=== PATIENT | male | born 1980 | race Caucasian/White ===

== ENCOUNTER 2023-07-27 09:45 | Emergency (ER) | payer OTHER, SELFPAY ==
[2023-07-27 09:59] VITALS: BP 157/95
--- NOTE | 2023-07-27 11:57 | ED.GENMED ---
History of Present Illness
General
Chief Complaint: Foreign Body Ingestion
Source: patient
Exam Limitations: none
Time Seen by Provider: 07/27/23 11:18
Nursing documentation reviewed up to this point in time: agreed with
Travel History
Have you had any contact with someone who has COVID-19?: No
Do you have any symptoms of coronavirus? Fever > 100 degrees, chills, cough, shortness of breath, sore throat, loss of taste or smell, muscle aches, or headache?: No
History of Present Illness
History of Present Illness:
The patient is a 43-year-old man who reports that he has had recurrent difficulty swallowing and choking episodes. He reports that he was eating a sandwich yesterday at 6 PM and felt something get stuck at the top of his throat. Patient denies any
shortness of breath. He is able to eat and drink, however, when he does so, it makes him feel more uncomfortable. Patient reports he was told to follow-up with ENT but has not yet done so. Patient states it feels as though ' a hair is stuck on
his soft palate'. The patient reports he was at urgent care and referred to come to the ED.
Past History
Past History
ED Past Medical History: HTN and Other (Chronic abdominal pain with no clear cut etiology. Anxiety, panic disorder, PTSD)
ED Past Surgical History: Appendectomy
Social History
Alcohol: Occasional
Personal:
Living: with family
Employment: Other
Family History
Family History: Other
Review of Systems
Review of Systems
Allergies reviewed?: Yes
All Other Systems: ROS reviewed and negative except as documented in HPI and ROS
Constitutional: Reports no symptoms
EENT: Reports other
Respiratory: Reports no symptoms
Cardiac: Reports no symptoms
ABD/GI: Reports no symptoms
: Reports no symptoms
Musculoskeletal: Reports no symptoms
Skin: Reports no symptoms
Neurological: Reports no symptoms
Endocrine: Reports no symptoms
Hematologic/Lymphatic: Reports no symptoms
Psychiatric: Reports no symptoms
Phy Exam
Physical Exam
Physical Exam:
Physical Exam
General: no apparent distress, not acutely ill. Breathing comfortably but slightly anxious
Neck: supple. no meningeal signs. normal posterior pharynx. No uvular swelling. No foreign body seen in oral pharyngeal area. No soft tissue neck swelling. No pooling of saliva. No stridor
Heart: s1/s2 regular rate and rhythm, no murmur. equal radial pulses.
Lungs: no acute respiratory distress. clear bilaterally
Abdomen: normal bowel sounds. not tender. no CVAT
Neuro: alert and oriented. no focal neurological deficits
Skin: no rash
Psychiatric: well kept. interactive and cooperative
Extremities: no edema. no calf tenderness. negative homans. good distal pulses
Course
Vital Signs
Initial and Last Documented VS:
Initial Vital Signs
Temp Pulse Resp BP Pulse Ox
98.5 F 97 18 157/95 99
07/27/23 09:59 07/27/23 09:59 07/27/23 09:59 07/27/23 09:59 07/27/23 09:59
Last Documented Vital Signs
Temp Pulse Resp BP Pulse Ox
98.5 F 97 18 157/95 99
07/27/23 09:59 07/27/23 09:59 07/27/23 09:59 07/27/23 09:59 07/27/23 09:59
MDM/Problems Addressed
Differential Diagnosis Includes:
Partial esophageal food impaction, pharyngitis
MDM/Problems Addressed:
Patient presents with acute feeling of food stuck in his throat
Chronic conditions affecting care: HTN
*Pulse Oximetry
Patient hypoxic: no
*EKG
Interpreted by ED Provider?: NA
*Product Development Chemist Interpretation
Rate: Product Development Chemist- N/A
*Critical Care Note
Total Time (30-74mins, 75-104mins- exclusive of procedures): Not Applicable
Data Reviewed
Source: patient
Patient Management
Social determinants of health affecting care: Strong social support
Discussion with other providers: Other (Discussed case with Dr. Jed Madera from GI who said he will not come into the hospital to see the patient today but will tell the office to help arrange follow-up as an outpatient.)
Escalation/DeEscalation of care consider admission/obs:
Patient shows no sign of airway compromise or shortness of breath. He has demonstrated that he could drink water without difficulty. I expressed to the GI doctor that the patient feels slightly uncomfortable and anxious but unfortunately the GI
doctor will not do an emergent scope. Patient encouraged to follow-up with GI soon as possible and given phone number for follow-up.
ED Attending Note
-
Portions of this chart may have been created with voice recognition software.� Occasional wrong word or��sound alike� substitutions may have occurred due to the inherent limitations of voice recognition software.
Discharge Plan
Departure
Patient Disposition: Home (Routine Discharge)
Date of Disposition: 07/27/23
Time of Disposition: 12:14
Patient with high blood pressure during this ER visit?: Yes
Condition: Good
Covid-19: Not Applicable
Discharge Problem:
Abnormal swallowing
Instructions: Food Obstruction, BLOOD PRESSURE
Prescriptions:
No Action
Wegovy 1 mg/0.5 mL Pen Injector
1 mg SC QWEEK
Referrals:
Jarred Madera MD [Active] - (Call Friday morning for follow up appointment)
Alan Posada IV, MD [Family Provider] -
Interventions
Interventions:
*Risk Screen - Suicide Last Done: 07/27/23 09:59
*General Assessment Last Done: 07/27/23 12:43
*Neglect/Abuse Screening Last Done: 07/27/23 09:59
ED- Fall Risk Assessment Last Done: 07/27/23 12:43
*ED COVID-19 Vaccine History Last Done: 07/27/23 09:59
*Nursing Disposition Last Done: 07/27/23 12:43
AO-Ubuzuv-Cshlmncukx Assessment Last Done: 07/27/23 12:41
ED-EENT Assessment Last Done: 07/27/23 12:41
ED- Pulmonary Assessment Last Done: 07/27/23 12:41
Discharge Date and Time
Discharge Date/Time: 07/27/23 12:44
== END 2023-07-27 12:44 | disposition home or self-care (01) ==
LOC: EMR 09:45
PROVIDERS: EMERGENCY PHYSICIAN Emergency Medicine; FAMILY PHYSICIAN Family Medicine
DX: R13.10 Dysphagia, unspecified (principal); I10 Essential (primary) hypertension
CPT/HCPCS: 99282

== ENCOUNTER 2023-07-28 13:58 | Observation (INO) | payer OTHER, SELFPAY ==
[2023-07-28 08:28] VITALS: BP 175/98
--- NOTE | 2023-07-28 08:49 | ED.GENMED ---
History of Present Illness
General
Chief Complaint: Swallowing Problem
Source: patient
Exam Limitations: none
Time Seen by Provider: 07/28/23 08:38
Travel History
Have you had any contact with someone who has COVID-19?: No
Do you have any symptoms of coronavirus? Fever > 100 degrees, chills, cough, shortness of breath, sore throat, loss of taste or smell, muscle aches, or headache?: No
History of Present Illness
History of Present Illness:
See MDM
Past History
Past History
ED Past Medical History: HTN and Other (Chronic abdominal pain with no clear cut etiology. Anxiety, panic disorder, PTSD)
ED Past Surgical History: Appendectomy
Social History
Alcohol: Occasional
Personal:
Living: with family
Employment: Other
Family History
Family History: Other
Phy Exam
Physical Exam
Physical Exam:
See MDM
Course
Orders/Labs/Results
Orders:
Orders
07/28/23 08:47
CT Neck With Iv Contrast Urgent
Comment:
Reason For Exam: foreign body sensation, trouble swallowing
0.9% Sodium Chloride 1000 ml [Nss] 1,000 ml IV BOLUS
Glucagon [GlucaGen] 1 mg IV NOW STA
07/28/23 08:49
Lorazepam [Ativan] 0.5 mg IV NOW STA
07/28/23 09:13
Complete Blood Count/With Diff Urgent
Comprehensive Metabolic Panel Urgent
Abnormal Lab Results
07/28/23
09:13
Lymphocytes % 17.7 L %
(20.5-51.1)
BUN 8 L mg/dl
(9-20)
Glucose 110 H mg/dl
(70-99)
ALT 54 H U/L
(0-50)
07/28/23 09:13
07/28/23 09:13
Vital Signs
Initial and Last Documented VS:
Initial Vital Signs
Temp Pulse Resp BP Pulse Ox
98.7 F 91 16 175/98 98
07/28/23 08:28 07/28/23 08:28 07/28/23 08:28 07/28/23 08:28 07/28/23 08:28
Last Documented Vital Signs
Temp Pulse Resp BP Pulse Ox
98.7 F 91 16 175/98 98
07/28/23 08:28 07/28/23 08:28 07/28/23 08:28 07/28/23 08:28 07/28/23 08:28
MDM/Problems Addressed
Differential Diagnosis Includes:
HPI and MDM Narrative:
43-year-old male presenting with trouble swallowing. Patient developed a choking episode a few days ago and has a foreign body sensation in his throat
Physical exam
General: Uncomfortable, anxious, actively trying to swallow
HEENT: protecting airway. Dry mucous membranes. Posterior pharynx clear
Neck: supple
CV: No evidence of cyanosis
Resp: No accessory muscle use
Abd: Non-distended
Extremities: No deformities
Neuro: alert
Psych: Normal affect
Skin: Intact
Problems Addressed including Acute and Chronic Conditions affecting care:
1. Trouble swallowing
Acuity: acute
Prognosis: stable
Details: Will obtain CT neck looking for any evidence of mass. Will give dose of glucagon
Updates
CT shows thyroid mass. Patient is protecting airway. Patient still struggling with drinking water. Will admit
Differential Diagnosis (but not limited to): Anxiety, esophageal obstruction, mass effect
Testing considered: Chest x-ray
Drug therapy (if applicable): OTC meds, please see d/c instruction regarding Rx drugs
Amount and/or Complexity of Data Reviewed
Clinical info obtained from: Patient
External data reviewed: N/A
Labs I independently reviewed (but not limited to): White blood cell count normal
Radiology: The CT scan was personally and independently reviewed. In addition, official CT report reviewed.
Pulse Ox: not hypoxic
EKG independently reviewed: N/A
Manufacturing Worker: N/A
Critical Care: N/A
Risk of Complication:
Social Determinants of health: Good social support
Discussed with other providers: Hospitalist
Escalation of Care includes Admit/Obs: Given the thyroid mass and trouble swallowing, will admit
Occasional wrong word or 'sound a like' substitutions may have occurred due to the inherent limitations of voice recognition software. Read the chart carefully and recognize, using context, where substitutions have occurred.
*Critical Care Note
Total Time (30-74mins, 75-104mins- exclusive of procedures): Not Applicable
ED Attending Note
-
Portions of this chart may have been created with voice recognition software.� Occasional wrong word or��sound alike� substitutions may have occurred due to the inherent limitations of voice recognition software.
Discharge Plan
Departure
Patient Disposition: Admit
Date of Disposition: 07/28/23
Time of Disposition: 12:26
Admit to: Med/Surg
Presentation/result/management discussed w/ accepting MD/DO: Hospitalist
Discharge Problem:
Thyroid mass, Trouble swallowing
Referrals:
Alan Posada IV, MD [Family Provider] -
Interventions
Interventions:
*ED COVID-19 Vaccine History Last Done: 07/28/23 08:28
[2023-07-28] MEDS: ATIVAN 0.5 MG IV (09:05)
[2023-07-28] MEDS: GlucaGen 1 MG IV (09:09)
[2023-07-28] MEDS: NSS 1000 IV (09:12)
[2023-07-28 09:22] LABS: % Basophils 1.3 % (0-2); % Eosinophils 0.4 % (0-6); % Immature Granulocytes 0.4 % (0-0.5); % Lymphocytes 17.7 % (20.5-51.1); % Monocytes 8.2 % (1.7-9.3); Absolute Basophils 0.1 10^3/uL (0-0.2); Absolute Lymphocytes 1.2 10^3/uL (1.2-3.4); Absolute Monocytes 0.6 10^3/uL (0.1-0.6); Hematocrit 45.2 % (39.0-52.0); Hemoglobin 16.4 g/dL (13.0-18.0); Mean Corp Hgb Conc. 36.3 g/dL (33.0-37.0); Mean Corpuscular Hgb 30.8 pg (27.0-31.0); Mean Corpuscular Volume 84.8 fL (80.0-94.0); Mean Platelet Volume 9.7 fL (7.4-10.4); Nucleated Red Blood Cells % 0 % (-); Platelet Count 254 10^3/uL (130-400); Red Blood Cell Count 5.33 10^6/uL (4.70-6.10); Red Cell Dist. Width 12.2 % (11.5-14.5)
[2023-07-28 09:32] LABS: ALT (SGPT) 54 U/L (0-50); AST (SGOT) 46 U/L (17-59); Albumin 4.7 g/dl (3.5-5.0); Alkaline Phosphatase 73 U/L (38-126); Blood Urea Nitrogen 8 mg/dl (9-20); Calcium 9.4 mg/dl (8.4-10.2); Carbon Dioxide 26 mmol/L (22-30); Chloride 105 mmol/L (98-107); Glucose 110 mg/dl (70-99); Sodium 137 mmol/L (135-145); Total Bilirubin 1.2 mg/dl (0.2-1.3); Total Protein 7.9 g/dl (6.3-8.2); eGFR > 60.00
--- NOTE | 2023-07-28 13:45 | HPS.HSE ---
Addendum entered and electronically signed by Theo Monte MD 07/28/23 16:26:
I saw and examined the patient.
The ENTRY LEVEL STAFF ACCOUNTANT or PA's note was reviewed and I agree with the note.
Comment: 43-year-old male past history of hypertension, obesity, GERD, anxiety now presenting for foreign body sensation in the throat. Patient felt like he has something stuck in the back of his throat, has never happened before. Acknowledges
stepson with strep throat although minimal exposure, and no significant findings on examination. Patient is able to manage secretions although does not feel comfortable having anything else more than liquid at this point. Has not eaten since
Friday. Patient not hypoxic, hypertensive. CAT scan showing 3 mm low-density mass in the left lower lobe, small volume vascular calcification of both carotid bifurcations. No significant findings on physical exam. Will consult ENT for further
evaluation including NPL. May also benefit from speech evaluation.f/u SARS-CoV-2, FLu culture swab.
Original Note:
Family Physician
-
Family Physician: Alan Posada IV, MD
Chief Complaint
-
Foreign Body Sensation
History of Present Illness
Patient is a 43-year-old male past medical history of hypertension, obesity, GERD, anxiety who presents with foreign body sensation of the throat. Patient reports Friday evening he was eating a sandwich when he felt something get stuck in the
back of his throat. He states he tried to clear the sensation by drinking water without improvement. He was seen here at the [facility] ED yesterday and discharged home as he was managing his airway and secretions without difficulty.
Symptoms persisted and he returned to the emergency department this morning.
Medical History
Past Medical History
Past Medical History: Reports Other
Additional Past Medical History:
Essential Hypertension
Asthma
GERD
Anxiety
Obstructive Sleep Apnea
Past Surgical History: Reports Other
Additional Past Surgical History:
Appendectomy
Social History
Tobacco: Former Smoker (Quit over 20 years ago)
Alcohol: None
Family History
Family History: Not pertinent
Allergies / Home Medications
Allergies reflects when Allergies were last updated in [facility].
Home Medications with original date entered in [facility]
Allergy/Medication List:
Allergies
Allergy/AdvReac Type Severity Reaction Status Date / Time
No Known Allergies Allergy Verified 07/28/23 08:30
Home Medications
Vitafusion Fiberwell 1 gummy PO DAILYPRN PRN supplement 07/28/23
Vitafusion Men's Multivitamin 1 gummy PO DAILYPRN PRN supplement 07/28/23
albuterol sulfate 90 mcg/actuation aerosol inhaler 2 puff inhalation R Q4HPRN PRN sob 07/28/23
ibuprofen 200 mg tablet (Motrin IB) 400 mg PO DAILYPRN PRN mild pain 07/28/23
semaglutide (weight loss) 1 mg/0.5 mL subcutaneous pen injector (Wegovy) 1 mg SC TU@1900 07/28/23
simethicone 125 mg chewable tablet (Gas-X Extra Strength) 250 mg PO DAILYPRN PRN stomach discomfort 07/28/23
Review of Systems
-
A 12 point ROS was completed and negative except as noted: Yes
Constitutional: Denies Fever
Respiratory: Denies Cough or Trouble Breathing
Cardiac: Denies Chest Pain or Palpitations
Abdomen/GI: Denies Abdominal Pain, Nausea, Vomiting or Diarrhea
Physical Exam
Vital Signs
Vital Signs
Temp Pulse Resp BP Pulse Ox
98.7 F 91 16 175/98 98
07/28/23 08:28 07/28/23 08:28 07/28/23 08:28 07/28/23 08:28 07/28/23 08:28
Physical Exam
General: Comfortable and Conversant
HEENT: Anicteric, Moist mucous membranes and Other (Uvula slightly erythematous, no significant plaques noted)
Respiratory: Clear and Non Labored Respirations
Cardiac: S1/S2 and Regular Rhythm; No Murmur
GI: Soft and Non Distended
Musculoskeletal: No Clubbing, No Cyanosis and No Edema
Skin: Warm and Dry
Neuro: Awake, Alert, Oriented and Nonfocal/grossly intact
Psych: Calm
Laboratory Results
-
07/28/23 09:13
07/28/23 09:13
Laboratory Results
Total Bilirubin 1.2 mg/dl (0.2-1.3) 07/28/23 09:13
AST 46 U/L (17-59) 07/28/23 09:13
ALT 54 U/L (0-50) H 07/28/23 09:13
Alkaline Phosphatase 73 U/L (38-126) 07/28/23 09:13
Data Reviewed
-
CT Scan: Report Reviewed by me
Lab Data: Labs Reviewed by me
Impression/Plan
-
Throat Foreign Body Sensation
-Consult ENT
-Consult Speech
-Check for COVID, Flu and RSV. Check throat culture
-Allow full liquids
GERD
-Continue Protonix
Obstructive Sleep Apnea
-Patient uses CPAP at home
DVT proph: SCDs
Code Status: Full Code
[2023-07-28 14:43] LABS: COVID-19 Antigen Negative (Negative)
[2023-07-28 15:00] VITALS: BP 156/77
--- NOTE | 2023-07-28 17:15 | CON.MD ---
Consultation - Medical
-
Asked to see patient for dysphagia and globus sensation.
Pt seen and full consult noted, laryngoscopy performed at bedside and CT reviewed.
No evidence of infection, foreign body or mass. Rather, dysphagia likely due to globus sensation and anxiety. Would Recommend:
Increase proton pump inhibitor to bid dosage
Obtain barium swallow
[2023-07-28 23:00] VITALS: BP 113/74
[2023-07-29 07:45] VITALS: BP 146/87
[2023-07-29 08:25] LABS: Hematocrit 45.1 % (39.0-52.0); Hemoglobin 15.4 g/dL (13.0-18.0); Mean Corp Hgb Conc. 34.1 g/dL (33.0-37.0); Mean Corpuscular Hgb 30.6 pg (27.0-31.0); Mean Corpuscular Volume 89.7 fL (80.0-94.0); Mean Platelet Volume 10.3 fL (7.4-10.4); Platelet Count 220 10^3/uL (130-400); Red Blood Cell Count 5.03 10^6/uL (4.70-6.10); Red Cell Dist. Width 12.2 % (11.5-14.5); White Blood Cell Count 5.8 10^3/uL (4.8-10.8)
[2023-07-29] MEDS: NSS (PRESERVATIVE FREE) 10 ML IV ×2 (08:41→19:58)
[2023-07-29] MEDS: PROTONIX IV 40 MG IV ×2 (08:41→19:58)
[2023-07-29 09:06] LABS: Blood Urea Nitrogen 9 mg/dl (9-20); Calcium 8.7 mg/dl (8.4-10.2); Carbon Dioxide 28 mmol/L (22-30); Chloride 104 mmol/L (98-107); Glucose 84 mg/dl (70-99); Potassium 4.5 mmol/L (3.5-5.1); Sodium 136 mmol/L (135-145); eGFR > 60.00
--- NOTE | 2023-07-29 11:46 | PTOTSP ---
Dysphagia Evaluation
Patient is reporting feelings of regurgitation and nasal reflux (puree more so than liquids feel like they are getting stuck behind soft palate) as well as significant anxiety/fear of choking. Video swallow study warranted to objectively assess
oral/pharyngeal stages of swallowing, screen esophagus, and provide patient with biofeedback.
Patient can continue diet as ordered (full liquids) until video swallow study is completed. Patient consented to test.
Recommend:
1. IDDSI Level 0 (Thin Liquids)
2. Medications - as best tolerated
3. Video swallow study
--- NOTE | 2023-07-29 13:21 | PTOTSP ---
Video Swallow Examination
Patient presents with functional oral and pharyngeal stages of swallowing despite mild differences noted. Patient had episodes of incomplete epiglottic inversion, mildly reduced tongue based retraction, and mild residue in the valleculae. He
sensed residue, redirected it back to oral cavity, and then re-swallowed it. No aspiration occurred.
Esophageal sweep revealed retention in the distal esophagus concerning for slow emptying. Consider dedicated assessment of the esophagus.
Patient would be able to have a regular solid, thin liquid diet at this time based on oral/pharyngeal swallow. However, during this study he reported sensation of increased mucus and retrograde flow and had to discontinue trials due to discomfort.
Consider continuation of full liquid diet until further GI testing.
Recommend:
1. GI consult
2. Medications as best tolerated
3. If GI work up is unrevealing consider consulting psychiatry as patient is reporting significant anxiety about swallowing in setting of prior reported choking episode.
4. Will follow up briefly pending results of further medical work up for education.
--- NOTE | 2023-07-29 14:02 | CM ---
Chart reviewed. Spoke with pt at bedside
Lives with and children in multistory condo
Works postal delivery officer, drives
No DME. No hx snf/VN
PCP - Dr Alicia Posada
Pharm - [facility]
Anticipate home - no needs
--- NOTE | 2023-07-29 14:12 | W.PN.HOSP.TC ---
Today's Communication/Plan
-
barium swallow
ADAT
Psych recs
Assessment / Plan
Assessment / Plan
Physical Exam
General: Comfortable and Conversant
HEENT: Anicteric, Moist mucous membranes
Respiratory: Clear and Non Labored Respirations
Cardiac: S1/S2 and Regular Rhythm; No Murmur
GI: Soft and Non Distended
Musculoskeletal: No Clubbing, No Cyanosis and No Edema
Skin: Warm and Dry
Neuro: Awake, Alert, Oriented and Nonfocal/grossly intact
Psych: Calm
Throat Foreign Body Sensation
- suspect 22/ to anxiety
-ENT recs appreciated - NPL unremarkable
-Speech eval, VSE unremarkable
-barium swallow ordered
-Psych consutled for anxiety
-could advance diet but patient scared
-increased PPI BID
GERD
-Continue Protonix - increased dosing
3 mm low-density mass in the left lobe of the thyroid
-f/u outpatient US
-F/u TSH w/ reflex ft4
Obstructive Sleep Apnea
-Patient uses CPAP at home
DVT proph: HSQ
Code Status: Full Code
Total time spent on today's encounter was 54 minutes which included time spent in counseling the patient/family regarding diagnosis and treatment plan as listed above, goals of care, and symptom management. Case was discussed with nursing staff,
specialists, and care coordinators/case management. All labs and imaging personally reviewed by me. Remainder the time spent in detailed review of previous records, lab data, imaging, and other medical provider documentation.
Anticipated Discharge: Within 24 hours
Subjective/Interval History
-
Date of Service: July 29, 2023
Still feeling secretions in the back of his throat, ENT evaluation unremarkable
Objective Data
-
Labs:
Laboratory Results
07/29/23
06:45
WBC 5.8
Hgb 15.4
Hct 45.1
Plt Count 220
Sodium 136
Potassium 4.5
Chloride 104
Carbon Dioxide 28
BUN 9
Creatinine 0.8
Glucose 84
Calcium 8.7
Vital Signs:
Vital Signs
Temp Pulse Resp BP Pulse Ox
97.3 F 77 18 146/87 99
07/29/23 07:45 07/29/23 07:45 07/29/23 07:45 07/29/23 07:45 07/29/23 07:45
Review of Systems
-
History Source: Patient
All other systems: Not reviewed unless documented
Data Reviewed
-
Diagnostic Radiology: Image personally visualized and interpreted and Report Reviewed by me
CT Scan: Image personally visualized and interpreted and Report Reviewed by me
Labs: Labs Reviewed by me
--- NOTE | 2023-07-29 14:55 | CS.PSYCHR ---
Consult Summary - Psychiatry
-
Pt is 43 yo male with history of anxiety, who presented to ED with trouble swallowing, sensation of a foreign body in his throat. Pt seen, sitting up in bed in no acute distress, states he feels calmer after he was told there is a finding on the
video swallowing study he just had. Pt states his anxiety has been stable/ manageable recently, with no recent episodes of panic. He reports he was watching TV with his , laughing at a show, when symptoms started. Pt has had therapy and
medications in the past for anxiety, but not for several years. Pt denies depression. 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 Pt denies any other recent stressors
or life events. Pt states he prefers not to be on medications for anxiety. He did get relief from yesterday morning's dose of Ativan 0.5 mg.
Psych Hx: anxiety, with previous outpatient therapy and medication trials, none in several years. Pt reports unspecified trauma as a child, had therapy for it in his teens
Pt reports last panic episode was when getting on a plane earlier this year
SH: ; remarried 7 years ago, employed full-time
MSE: alert, oriented, calm, cooperative, sitting up in bed. Pt mildly anxious, c/o continued sensation of something in his throat, unable to clear. Mood stable, affect appropriate. No signs of psychosis, no agitation. Insight good
Imp: Unspecified anxiety d/o, stable overall, increased with onset of above physical symptoms
Rec: prn Ativan 0.5 mg on limited basis; Outpatient therapy is worsened anxiety persists
Pt appears psychiatrically stable for discharge to outpatient mgt
[2023-07-29] MEDS: HEPARIN 5000 UNITS SC (15:09)
[2023-07-29 15:31] VITALS: BP 161/102
[2023-07-29] MEDS: ATIVAN 0.5 MG PO (15:39)
[2023-07-29 23:37] VITALS: BP 147/92
[2023-07-30] MEDS: HEPARIN SC ×2 (00:04→08:24)
[2023-07-30 07:00] VITALS: BP 165/97
[2023-07-30 08:03] LABS: Hematocrit 46.3 % (39.0-52.0); Hemoglobin 16.4 g/dL (13.0-18.0); Mean Corp Hgb Conc. 35.4 g/dL (33.0-37.0); Mean Corpuscular Hgb 30.5 pg (27.0-31.0); Mean Corpuscular Volume 86.2 fL (80.0-94.0); Mean Platelet Volume 10.1 fL (7.4-10.4); Platelet Count 258 10^3/uL (130-400); Red Blood Cell Count 5.37 10^6/uL (4.70-6.10); Red Cell Dist. Width 12.3 % (11.5-14.5); White Blood Cell Count 6.4 10^3/uL (4.8-10.8)
[2023-07-30] MEDS: NSS (PRESERVATIVE FREE) 10 ML IV (08:23)
[2023-07-30] MEDS: PROTONIX IV 40 MG IV (08:23)
[2023-07-30 08:37] VITALS: BMI 39.5
[2023-07-30 08:58] LABS: Blood Urea Nitrogen 11 mg/dl (9-20); Calcium 9.2 mg/dl (8.4-10.2); Carbon Dioxide 24 mmol/L (22-30); Chloride 100 mmol/L (98-107); Estimated Creatinine Clearance > 125 ml/min; Glucose 93 mg/dl (70-99); Sodium 137 mmol/L (135-145); eGFR > 60.00
--- NOTE | 2023-07-30 09:59 | PTCARENOTE ---
Pt left the floor vis stretcher for a barium study, Mobile, pillow and in position of comfort. no distress.
--- NOTE | 2023-07-30 11:55 | W.PN.UPDATE ---
Update Note
Progress Note Update
psychiatry reviewed chart. dr alcantara recommended out pt therapy if anxiety is an issue.
psych is signing off please call us if you need us to return.
--- NOTE | 2023-07-30 12:24 | W.PN.HOSP.TC ---
Addendum entered and electronically signed by Theo Monte MD 07/30/23 17:23:
[id number]
Addendum entered and electronically signed by Theo Monte MD 07/30/23 13:20:
No obstruction on barium swallow
Follow-up PCP, GI outpatient
Original Note:
Today's Communication/Plan
-
PPI BID
Flonase
F/u GI outpatient
Assessment / Plan
Assessment / Plan
Physical Exam
General: Comfortable and Conversant
HEENT: Anicteric, Moist mucous membranes
Respiratory: Clear and Non Labored Respirations
Cardiac: S1/S2 and Regular Rhythm; No Murmur
GI: Soft and Non Distended
Musculoskeletal: No Clubbing, No Cyanosis and No Edema
Skin: Warm and Dry
Neuro: Awake, Alert, Oriented and Nonfocal/grossly intact
Psych: Calm
Throat Foreign Body Sensation
?Postnasal drip
- suspect superimposed anxiety
-ENT recs appreciated - NPL unremarkable
-Speech eval, VSE unremarkable
-barium swallow ordered�follow-up results
-Psych consulted for anxiety
-ADAT
-increased PPI BID
-Started Flonase
-F/u GI outpatient
GERD
-Continue Protonix - increased dosing
3 mm low-density mass in the left lobe of the thyroid
-f/u outpatient US
Essential hypertension
� Start lisinopril
Obstructive Sleep Apnea
-Patient uses CPAP at home
DVT proph: HSQ
Code Status: Full Code
More than 30 minutes spent in discharge including
Final examination of the patient
Summarizing hospital stay
Instructions for continuing care to all relevant caregivers
Preparation of discharge records, prescriptions, and referral forms
Total time spent (35 in minutes):
Anticipated Discharge: Today
Subjective/Interval History
-
Date of Service: July 30, 2023
Feels somewhat better today, does agree that he has a sensation of something dripping down his throat
Objective Data
-
Labs:
Laboratory Results
07/30/23
06:46
WBC 6.4
Hgb 16.4
Hct 46.3
Plt Count 258
Sodium 137
Potassium 4.0
Chloride 100
Carbon Dioxide 24
BUN 11
Creatinine 0.7
Glucose 93
Calcium 9.2
Vital Signs:
Vital Signs
Temp Pulse Resp BP Pulse Ox
98.0 F 79 16 165/97 97
07/30/23 07:00 07/30/23 07:00 07/30/23 07:00 07/30/23 07:00 07/30/23 07:00
I&O
07/29/23 07/30/23 07/31/23
06:59 06:59 06:59
Intake Total 960 / 960
Balance 960 / 960
Review of Systems
-
History Source: Patient
All other systems: Not reviewed unless documented
Data Reviewed
-
Diagnostic Radiology: Image personally visualized and interpreted and Report Reviewed by me
CT Scan: Image personally visualized and interpreted and Report Reviewed by me
Labs: Labs Reviewed by me
--- NOTE | 2023-07-30 12:33 | W.DS.TRANS ---
DC Summary - Immigration Specialist
-
Discharge Instructions:
Discharge Diagnosis/Procedures post nasal ggt
Throat Foreign Body Sensation
Diet As tolerated
Activity As tolerated
Instructions:
Stand-Alone Forms:
Changes to Home Medications: Yes
Discharge Medications:
DC Medications w/original date entered in [facility]
Vitafusion Fiberwell 1 gummy PO DAILYPRN PRN supplement 07/28/23
Vitafusion Men's Multivitamin 1 gummy PO DAILYPRN PRN supplement 07/28/23
albuterol sulfate 90 mcg/actuation aerosol inhaler 2 puff inhalation R Q4HPRN PRN sob 07/28/23
ibuprofen 200 mg tablet (Motrin IB) 400 mg PO DAILYPRN PRN mild pain 07/28/23
semaglutide (weight loss) 1 mg/0.5 mL subcutaneous pen injector (Wegovy) 1 mg SC TU@1900 Weight loss 07/28/23
simethicone 125 mg chewable tablet (Gas-X Extra Strength) 250 mg PO DAILYPRN PRN stomach discomfort 07/28/23
fluticasone propionate 50 mcg/actuation nasal spray,suspension (Allergy Relief (fluticasone)) 1 spray intranasal BID PRN allergy symptoms #16 grams 07/30/23
lisinopril 10 mg tablet 10 mg PO DAILY 30 days #30 tabs 07/30/23
pantoprazole 40 mg tablet,delayed release 40 mg PO BID 30 days #60 tabs 07/30/23
Home Medication Changes
fluticasone propionate 50 mcg/actuation nasal spray,suspension (Allergy Relief (fluticasone)) 1 spray intranasal BID PRN allergy symptoms #16 grams 07/30/23
lisinopril 10 mg tablet 10 mg PO DAILY 30 days #30 tabs 07/30/23
pantoprazole 40 mg tablet,delayed release 40 mg PO BID 30 days #60 tabs 07/30/23
Pending Results: No
[2023-07-30] MEDS: ZESTRIL 10 MG PO (13:14)
--- NOTE | 2023-07-30 13:27 | CM ---
MD entered order for discharge .
Spoke with patient he said he was ready for discharge,
His Isha will drive him home.
Offered VN he declined need,
PLAN Home no needs
== END 2023-07-30 13:46 | disposition home or self-care (01) ==
LOC: 4 EAST ACU 13:58
PROVIDERS: Physician Assistant Medical; ADMITTING PHYSICIAN Internal Medicine; CONSULT PHYSICIAN Psychiatry & Neurology Psychiatry; EMERGENCY PHYSICIAN Student in an Organized Health Care Education/Training Program; FAMILY PHYSICIAN Family Medicine; OTHER PHYSICIAN Otolaryngology
DX: R09.A2 Foreign body sensation, throat (principal); I10 Essential (primary) hypertension; K21.9 Gastro-esophageal reflux disease without esophagitis; F41.9 Anxiety disorder, unspecified; R22.1 Localized swelling, mass and lump, neck; E66.9 Obesity, unspecified; G47.33 Obstructive sleep apnea (adult) (pediatric); Z87.891 Personal history of nicotine dependence; Z11.52 Encounter for screening for COVID-19; Z68.39 Body mass index [BMI] 39.0-39.9, adult
CPT/HCPCS: 70491; 74210; 74230; 80048; 80053; 84443; 85025; 85027; 87070; 87502; 87807; 87811; 87880; 92610; 92611; 96361; 96374; 96375; 99285; G0378; J1610; Q9967

== ENCOUNTER → 2023-08-15 07:16 | Day surgery (SDC) | payer OTHER, SELFPAY | LOC: GI 07:16 | PROVIDERS: ATTENDING PHYSICIAN Internal Medicine Gastroenterology | DX: R13.12 Dysphagia, oropharyngeal phase (principal); F45.8 Other somatoform disorders | CPT/HCPCS: 43239; 88305 ==

== ENCOUNTER → 2023-12-12 07:05 | Outpatient (REF) | payer OTHER, SELFPAY | LOC: RAD 07:05 | PROVIDERS: ATTENDING PHYSICIAN Internal Medicine Gastroenterology; FAMILY PHYSICIAN Surgery | DX: R10.11 Right upper quadrant pain (principal) | CPT/HCPCS: 76700 ==